=== PATIENT | female | born 1950 | race Caucasian/White ===

== ENCOUNTER 2016-02-26 14:07 | Emergency (ER) | payer MEDICARE ==
[~2016-02-26] VITALS: Ht 165.1 cm; Wt 84.5 kg
[~2016-02-26 14:07] MED LIST: AMIT25TA9 PO; AMOX1TAB12 PO; ASP81CT; ASP81CT PO; BACL20TA PO; BENA5TAB2 PO; CHOL2000 PO; FLC1T PO; FURO20TA4 PO; FURO40TA4 PO; INSU100I14 SQ; INSU100I23 SQ; LANTUS SOL100 UNIT/1 SQ; METO-270 PO; NIAC1000 PO; OMEP40CA3 PO; OXYC-272 PO; WARF10TA PO; warfarin PO
--- OUTSIDE RECORDS SUMMARY | 2016-02-26 14:12 | XMS REPORT | Continuity of Care Document ---
Author Author [facility] Organization [facility] Address Unknown Phone Unavailable Care Team Providers Care Coater Hand Name Role Phone Brenton Santana MD PP [phone] Insurance Providers Payer Name Policy Number Subscriber Name Relationship [facility] [id number] [employer] Advance Directives Directive Response Recorded Date Advanced Directives No 10/08/12 10:10am Problems Medical Problem Onset Date Acute osteomyelitis of the ankle and/or foot 03/15/12 Bleeding 06/06/12 Bleeding from anus 10/08/12 Essential hypertension 06/07/12 Social History History Response Recorded Date/Time Exposure to occupational hazards N 10:10am Allergies, Adverse Reactions, Alerts Allergen Type Severity Reaction Last Updated adhesive tape *RETIRED-03/27/12 Allergy 03/20/12 Medications Medication Dose Units Route Sig Qty Days Omeprazole (Prilosec) 40 Mg PO DAILY [warfarin] 15 Mg PO DAILY Aspirin Insulin Aspart (Novolog) 10 Unit SQ TIDWM Insulin Glargine,Hum.rec.anlog (Lantus Solostar) 38 Unit SQ HS Niacin (Niaspan) 2000 Mg PO HS Amitriptyline Hcl 25 Mg PO HS Baclofen 20 Mg PO HS Benazepril Hcl 2.5 Mg PO DAILY Metoprolol Succinate 12.5 Mg PO BID Folic Acid (Folic Acid Tab) 1 Mg PO DAILY Cholecalciferol (Vitamin D3) (Vitamin D) 2000 Unit PO DAILY Furosemide 40 Mg PO DAILY Amoxicillin/Potassium Clav (Augmentin) 1 Tab PO BID Warfarin Sodium (Coumadin) 11 Mg PO DAILY@1700 Aspirin 81 Mg PO HS Amoxicillin/Potassium Clav (Amox Tr-K Clv 875-125 Mg Tab) 1 Each PO BID 30 Oxycodone Hcl/Acetaminophen (Percocet 10-325 Mg Tablet) 1 Each PO Q4H PRN Insulin Lispro (Humalog) 100 Unit SQ Furosemide 20 Mg PO DAILY Immunizations Name Given Type Date of Pneumonia Vaccine Received if Current 03/10/12 H Date Influenza Vaccine Received if Current 03/21/12 H Response Recorded Date/Time Status not known Unknown Results Test Date Result Interp. Ref. Range Absolute Neutrophil October 08, 2012 7:35am 0.0 # - Activated Partial Thromboplast Time October 09, 2012 5:40am 30.9 SEC N 25.0-39.0 Alanine Aminotransferase (ALT/SGPT) October 08, 2012 7:35am 41 U/L N 30-65 Albumin October 08, 2012 7:35am 3.5 G/DL N 3.4-5.0 Albumin/Globulin Ratio October 08, 2012 7:35am 2.8 H 1.1-1.8 Alkaline Phosphatase October 08, 2012 7:35am 212 U/L H 38-126 Anisocytosis October 08, 2012 7:35am Slight - Aspartate Amino Transf (AST/SGOT) October 08, 2012 7:35am 31 U/L N 15-37 Atypical Lymphocytes June 07, 2012 6:04am 1 % - BUN/Creatinine Ratio October 09, 2012 5:40am 34 H 10-20 Band Neutrophils % October 08, 2012 7:35am 0 % N 0-6 Basophils # (Auto) October 09, 2012 5:40am 0.0 10^3/uL - Basophils % (Manual) October 08, 2012 7:35am 0 % N 0-2 Basophils (%) (Auto) October 09, 2012 5:40am 0 % N 0-2 Blood Morphology Comment October 08, 2012 7:35am See reference - Blood Urea Nitrogen October 09, 2012 5:40am 41 MG/DL H 7-18 Calcium Level October 09, 2012 5:40am 9.5 MG/DL N 8.8-10.8 Calcium/Ionized Calcium Ratio October 08, 2012 7:35am 4.00 mg/dL - Calculated Osmolality October 08, 2012 7:35am 293 MOSM/L N 280-300 Carbon Dioxide Level October 09, 2012 5:40am 24 MMOL/L N 22-29 Chloride Level October 09, 2012 5:40am 113 MMOL/L H 98-108 Creatine Kinase MB October 08, 2012 7:35am 1.6 NG/ML N 0.0-6.0 Creatinine October 09, 2012 5:40am 1.20 mg/dL N 0.6-1.2 Differential Total Cells Counted October 08, 2012 7:35am 100 - Eosinophils # October 08, 2012 7:35am 0.0 # - Eosinophils # (Auto) October 09, 2012 5:40am 0.1 10^3/uL - Eosinophils % (Manual) October 08, 2012 7:35am 0 % N 0-4 Eosinophils (%) (Auto) October 09, 2012 5:40am 1 % N 0-4 Estimat Glomerular Filtration Rate October 09, 2012 5:40am 55.6 - Estimated GFR (Non- October 09, 2012 5:40am 46.0 - Glucose Level October 09, 2012 5:40am 137 MG/DL DH 70-110 Hematocrit October 11, 2012 6:00am 33.30 % L 35.00-45.00 Hemoglobin October 11, 2012 6:00am 11.0 g /dL L 12.0-15.5 Hemoglobin A1c October 09, 2012 5:40am 8.1 % H 4.8-6.0 Hypochromasia October 08, 2012 7:35am Slight - Lymphocytes # October 08, 2012 7:35am 1.2 # - Lymphocytes # (Auto) October 09, 2012 5:40am 1.5 X 10^3 - Lymphocytes % (Manual) October 08, 2012 7:35am 23 % N 20-46 Lymphocytes (%) (Auto) October 09, 2012 5:40am 36 % N 20-46 Mean Corpuscular Hemoglobin October 09, 2012 5:40am 28.5 PG N 26.0-34.0 Mean Corpuscular Hemoglobin Concent October 09, 2012 5:40am 33.8 g/dL N 31.0-37.0 Mean Corpuscular Volume October 09, 2012 5:40am 84 FL N 80-100 Mean Platelet Volume October 09, 2012 5:40am 11.8 FL H 6.0-9.5 Microcytosis June 07, 2012 6:04am 1+ - Monocytes # October 08, 2012 7:35am 0.1 # - Monocytes # (Auto) October 09, 2012 5:40am 0.5 X 10^3 - Monocytes % (Manual) October 08, 2012 7:35am 1 % L 3-11 Monocytes (%) (Auto) October 09, 2012 5:40am 12 % H 3-11 Neutrophils # October 08, 2012 7:35am 3.8 # - Neutrophils # (Auto) October 09, 2012 5:40am 2.1 X 10^3 - Neutrophils (%) (Auto) October 09, 2012 5:40am 51 % N 51-67 Platelet Count October 09, 2012 5:40am 130 10^3/uL L 150-450 Potassium Level October 09, 2012 5:40am 4.1 MMOL/L N 3.5-5.1 Prothromb Time International Ratio October 11, 2012 10:00am 1.0 N 0.8-1.4 Prothrombin Time October 11, 2012 10:00am 13.2 SEC N 12.3-14.4 Red Blood Count October 09, 2012 5:40am 3.47 10^6/uL L 4.00-5.00 Red Cell Distribution Width October 09, 2012 5:40am 14.5 % N 11.8-15.6 Segmented Neutrophils % October 08, 2012 7:35am 76 % H 51-67 Smear Scan June 08, 2012 5:25am - Sodium Level October 09, 2012 5:40am 140 MMOL/L DN 135-150 Stool Occult Blood October 08, 2012 10:00am Positive H - Stool Occult Blood Expiration Date October 08, 2012 10:00am 06/2013 - Stool Occult Blood Lot Number October 08, 2012 10:00am [id number] [id number] - Total Bilirubin October 08, 2012 7:35am 0.5 MG/DL DN 0.1-1.0 Total Creatine Kinase October 08, 2012 7:35am 67 U/L N 30-135 Total Protein October 08, 2012 7:35am 6.3 G/DL L 6.4-8.5 Troponin I October 08, 2012 7:35am 0.012 ng/mL N 0.010-0.080 Uric Acid March 01, 2012 12:25pm 7.0 MG/DL H 2.6-5.6 Urine Bilirubin October 08, 2012 6:30pm Negative - Urine Blood October 08, 2012 6:30pm Negative - Urine Clarity October 08, 2012 6:30pm Clear - Urine Collection Type October 08, 2012 6:30pm Clean catch - Urine Color October 08, 2012 6:30pm Yellow - Urine Glucose (UA) October 08, 2012 6:30pm 3+ H - Urine Ketones October 08, 2012 6:30pm Negative - Urine Leukocyte Esterase October 08, 2012 6:30pm Negative - Urine Nitrite October 08, 2012 6:30pm Negative - Urine Protein October 08, 2012 6:30pm Negative - Urine Specific [place] October 08, 2012 6:30pm 1.010 - Urine Urobilinogen October 08, 2012 6:30pm 0.2 mg/dL - Urine pH October 08, 2012 6:30pm 5.5 - White Blood Count October 09, 2012 5:40am 4.06 10^3/uL N 4.0-11.0 Procedures Procedure Code Date AMPUTATION OF TOE 26180 03/15/12 TOE AMPUTATION 84.11 03/19/12 COMPLETE CBC W/AUTO DIFF WBC 43738 ROUTINE VENIPUNCTURE 80231 05/31/12 BONE IMAGING 3 PHASE 48116 06/03/12 A9503 06/03/12 HEMOGLOBIN 32712 06/05/12 HEMATOCRIT 18981 06/05/12 ROUTINE VENIPUNCTURE 76395 06/05/12 COLONOSCOPY 45.23 06/08/12 ESOPHAGOGASTRODUODENOSCOPY [EGD] W/CLOSED BIOPSY 45.16 06/08/12 COMPLETE CBC W/AUTO DIFF WBC 46474 ROUTINE VENIPUNCTURE 18537 06/10/12 PROTHROMBIN TIME 10748 07/03/12 ROUTINE VENIPUNCTURE 77648 07/03/12 PROTHROMBIN TIME 17078 07/16/12 ROUTINE VENIPUNCTURE 05203 07/16/12 GLYCOSYLATED HEMOGLOBIN TEST 08941 PROTHROMBIN TIME 15984 08/26/12 ROUTINE VENIPUNCTURE 40039 08/26/12 PROTHROMBIN TIME 16024 09/04/12 ROUTINE VENIPUNCTURE 28217 09/04/12 Aerobic Culture 05/09/12 Encounters Encounter Location Date/Time Discharged Inpatient [facility] 06/06/12 3:20pm
--- NOTE | 2016-02-26 15:03 | Diagnostic Imaging Report ---
INDICATION: Pain with concern for osteomyelitis.. TECHNIQUE: 3 views of the of fourth little toe at 2:50 PM. CORRELATION STUDY: None FINDINGS: There is asymmetric soft tissue swelling about the fourth digit. The osseous structures appear to be intact without definitive acute bony abnormality or merary bony destructive type change. IMPRESSION: 1. Bony demineralization. Soft tissue swelling but without evidence for acute bony abnormality or merary bony obstructive change. If continued assessment for osteomyelitis is desired, MRI and/or three-phase bone scan recommended. Dictated by: Dictated on workstation # [id number]
[2016-02-26] MEDS ORDERED: HYDR-3702 PO (15:33)
[2016-02-26 15:37] VITALS: BP 153/73
[2016-04-07] MEDS ORDERED: APIX2.5T2 PO (22:00)
[2016-04-07] MEDS ORDERED: METO2.5T PO (22:00)
[2016-04-07] MEDS ORDERED: SULF-221 PO (22:00)
== END 2016-02-26 15:38 | disposition home or self-care (01) ==
LOC: ED 14:09
DX: M79.675 Pain in left toe(s) (principal); E11.21 Type 2 diabetes mellitus with diabetic nephropathy; Z79.4 Long term (current) use of insulin; I73.9 Peripheral vascular disease, unspecified; Z86.718 Personal history of other venous thrombosis and embolism; Z79.01 Long term (current) use of anticoagulants
CPT/HCPCS: 99282; 99283

== ENCOUNTER → 2016-02-29 | Outpatient (CLI) | payer MEDICARE ==
[~2016-02-29] MED LIST changes: +APIX2.5T2 PO; +HYDR-3702 PO; +METO2.5T PO; +SULF-221 PO
--- NOTE | 2016-02-29 14:29 | Diagnostic Imaging Report ---
PROCEDURE: US Bilateral lower extremity arterial. TECHNIQUE: Multiple real-time grayscale images are obtained through both lower extremity arterial systems with color Doppler imaging and color Doppler spectral analysis. INDICATION: Right leg claudication. COMPARISON: None. DISCUSSION: Scattered atherosclerotic plaque is noted within both lower extremities. Monophasic blood flow is demonstrated throughout, concerning for an inflow stenosis, either within the distal aorta or common iliac arteries. Normal flow velocities are present bilaterally with no sonographic evidence for hemodynamically significant stenosis or arterial occlusion. Soft tissues are unremarkable. Unable to obtain ABIs due to patient unable to tolerate pressure on the ankles. IMPRESSION: 1. Monophasic blood flow within both lower extremities, concerning for an inflow stenosis. This could be further evaluated with CTA or conventional angiography. 2. No hemodynamically significant stenosis or arterial occlusion identified otherwise. Dictated by: Dictated on workstation # [id number]
== END ==
LOC: RAD 12:57
PROVIDERS: ATTEND Nurse Practitioner Family
DX: I73.9 Peripheral vascular disease, unspecified (principal)
CPT/HCPCS: 93925

== ENCOUNTER → 2016-03-29 | Outpatient (REF) | payer MEDICARE ==
[2016-03-29 11:32] LABS: ANION GAP 15.2 MEQ/L (3-15); MAGNESIUM* 2.1 mg/dL (1.6-2.3)
== END ==
LOC: LAB 10:57
PROVIDERS: ATTEND Nurse Practitioner Family
DX: R25.2 Cramp and spasm (principal); E11.9 Type 2 diabetes mellitus without complications
CPT/HCPCS: 80048; 82550; 83036; 83735

== ENCOUNTER → 2016-04-03 | Outpatient (CLI) | payer MEDICARE ==
[2016-04-03 13:09] LABS: ANION GAP 13.9 MEQ/L (3-15)
== END ==
LOC: LAB 10:20
PROVIDERS: ATTEND Nurse Practitioner Family
DX: E11.9 Type 2 diabetes mellitus without complications (principal)
CPT/HCPCS: 36415; 80048

== ENCOUNTER 2016-04-07 21:13 | Emergency (ER) | payer MEDICARE ==
[~2016-04-07] VITALS: Ht 165.1 cm; Wt 86.8 kg
[2016-04-07] MEDS ORDERED: SODIUM CHLORIDE FLUSH 10 ML SYR IV PRN (21:50)
[2016-04-07] MEDS ORDERED: NS IV 500 ML 500 ML IV SCH (21:50)
[2016-04-07] MEDS ORDERED: SODIUM CHLORIDE FLUSH 3 ML SYR IV PRN (21:50)
[2016-04-07] MEDS ORDERED: ONDANSETRON 2 MG/ML (Z0FRAN) 2 ML VIAL IV ONE (21:50)
[2016-04-07 21:58] LABS: BASOPHILS % (AUTO) 0 % (0-2); EOSINOPHILS # (AUTO) 0.1 10^3uL; EOSINOPHILS % (AUTO) 1 % (0-4); LYMPHOCYTES # (AUTO) 1.3 X10^3; MEAN CORPUSCULAR HEMOGLOBIN 29.8 PG (26.0-34.0); MEAN CORPUSCULAR HGB CONC 33.8 g/dL (31.0-37.0); MEAN CORPUSCULAR VOLUME 88 FL (80-100); MEAN PLATELET VOLUME 12.2 FL (6.0-9.5); MONOCYTES # (AUTO) 0.8 X10^3; MONOCYTES % (AUTO) 10 % (3-11); NEUTROPHILS # (AUTO) 5.3 X10^3; NEUTROPHILS % (AUTO) 71 % (51-67); PLATELET COUNT 159 10^3uL (150-450); WHITE BLOOD COUNT 7.53 10^3uL (4.0-11.0)
[2016-04-07 22:04] LABS: ALBUMIN 4.4 g/dL (3.4-5.0); ANION GAP 17.2 MEQ/L (3-15); CALCULATED IONIZED CALCIUM 4.4 mg/dL (3.8-4.6); TOTAL PROTEIN 7.9 g/dL (6.4-8.5)
[2016-04-07] MEDS ORDERED: ED- ONDANSETRON ODT 4 MG (ZOFRAN) 4 TABLETS/BTL PO ONE (22:50)
[2016-04-07 23:14] VITALS: BP 117/56
== END 2016-04-07 23:15 | disposition home or self-care (01) ==
LOC: ED 21:15
DX: R11.2 Nausea with vomiting, unspecified (principal); E11.22 Type 2 diabetes mellitus with diabetic chronic kidney disease; I13.10 Hypertensive heart and chronic kidney disease without heart failure, with stage 1 through stage 4 chronic kidney disease, or unspecified chronic kidney disease; N18.9 Chronic kidney disease, unspecified
CPT/HCPCS: 36415; 80053; 82150; 82550; 83690; 83735; 85025; 96374; 99283; A9270; J2405; J7040

== ENCOUNTER → 2016-04-10 | Outpatient (CLI) | payer MEDICARE | LOC: LAB 13:02 | PROVIDERS: ATTEND Internal Medicine Cardiovascular Disease | DX: R79.89 Other specified abnormal findings of blood chemistry (principal) | CPT/HCPCS: 36415; 80048 ==

== ENCOUNTER → 2016-04-17 | Outpatient (CLI) | payer MEDICARE ==
[2016-04-17 12:13] LABS: MEAN CORPUSCULAR HEMOGLOBIN 29.7 PG (26.0-34.0); MEAN CORPUSCULAR HGB CONC 32.7 g/dL (31.0-37.0); MEAN CORPUSCULAR VOLUME 91 FL (80-100); MEAN PLATELET VOLUME 12.8 FL (6.0-9.5); PLATELET COUNT 140 10^3uL (150-450); WHITE BLOOD COUNT 6.22 10^3uL (4.0-11.0)
[2016-04-17 12:25] LABS: ALBUMIN 3.8 g/dL (3.4-5.0); ANION GAP 14.5 MEQ/L (3-15); CALCULATED IONIZED CALCIUM 4.7 mg/dL (3.8-4.6); TOTAL PROTEIN 6.6 g/dL (6.4-8.5)
[2016-04-17 13:12] LABS: BAND NEUTROPHILS % 0 % (0-6); EOSINOPHILS % 1 % (0-4); LYMPHOCYTES # 1.2 #; MONOCYTES # 0.7 #; MONOCYTES % 12 % (3-11); RBC MORPH NORMAL (NORMAL); SEGMENTED NEUTROPHILS % 67 % (51-67); TOTAL CELLS COUNTED 100
[2016-04-19 20:33] LABS: KAPPA LIGHT CHAINS SERUM 7.32 mg/dL; LAMBDA LIGHT CHAINS SERUM 2.71 mg/dL (())
== END ==
LOC: LAB 11:36
PROVIDERS: ATTEND Family Medicine
DX: D47.2 Monoclonal gammopathy (principal); N18.2 Chronic kidney disease, stage 2 (mild)
CPT/HCPCS: 36415; 80053; 83883; 85007; 85027

== ENCOUNTER → 2016-04-19 | Outpatient (REF) | payer MEDICARE ==
[2016-04-19 19:50] LABS: IRON 63 ug/dL (50-170); UNBOUND IRON CONTENT 209 ug/dl (126-382)
[2016-04-19 20:25] LABS: VITAMIN B 12 1364 pg/mL (213-816)
== END ==
LOC: LAB 12:32
PROVIDERS: ATTEND Nurse Practitioner Family
DX: D64.9 Anemia, unspecified (principal)
CPT/HCPCS: 82607; 82728; 82746; 83540; 83550

== ENCOUNTER → 2016-04-20 | Outpatient (CLI) | payer MEDICARE ==
[2016-04-20 12:52] LABS: BASOPHILS % (AUTO) 0 % (0-2); EOSINOPHILS % (AUTO) 1 % (0-4); LYMPHOCYTES # (AUTO) 1.6 X10^3; MEAN CORPUSCULAR HEMOGLOBIN 30.3 PG (26.0-34.0); MEAN CORPUSCULAR HGB CONC 31.9 g/dL (31.0-37.0); MEAN CORPUSCULAR VOLUME 95 FL (80-100); MEAN PLATELET VOLUME 11.5 FL (6.0-9.5); MONOCYTES # (AUTO) 0.6 X10^3; MONOCYTES % (AUTO) 12 % (3-11); NEUTROPHILS # (AUTO) 2.8 X10^3; NEUTROPHILS % (AUTO) 56 % (51-67); PLATELET COUNT 149 10^3uL (150-450); WHITE BLOOD COUNT 5.07 10^3uL (4.0-11.0)
== END ==
LOC: LAB 12:42
PROVIDERS: ATTEND Family Medicine
DX: D64.9 Anemia, unspecified (principal)
CPT/HCPCS: 36415; 85025

== ENCOUNTER 2016-04-21 09:21 | Day surgery (SDC) | payer MEDICARE ==
[~2016-04-21] VITALS: Ht 162.6 cm; Wt 84.0 kg
[~2016-04-21 09:21] MED LIST changes: +ALFENTANIL 500 MCG/ML (ALFENTA) 5 ML AMP IV ONE; -AMIT25TA9 PO; -AMOX1TAB12 PO; -APIX2.5T2 PO; -ASP81CT; -ASP81CT PO; -BACL20TA PO; -BENA5TAB2 PO; -CHOL2000 PO; -FLC1T PO; -FURO20TA4 PO; -FURO40TA4 PO; -HYDR-3702 PO; -INSU100I14 SQ; -INSU100I23 SQ; +LACTATED RINGERS 1,000 ML IV SCH; -LANTUS SOL100 UNIT/1 SQ; +LIDOCAINE 4% TOPICAL 4.5 ML SYR ONE; -METO-270 PO; -METO2.5T PO; +MIDAZOLAM 2 MG/2 ML (VERSED) VIAL ONE; -NIAC1000 PO; -OMEP40CA3 PO; -OXYC-272 PO; +PROPOFOL 20 ML IV ONE; +SIMETHICONE 40 MG/0.6 ML (MYLICON DROPS) ORAL SYRINGE ONE; +SODIUM CHLORIDE FLUSH 3 ML SYR IV PRN; -SULF-221 PO; -WARF10TA PO; -warfarin PO
[2016-04-21 09:26] VITALS: BP 166/78
[2016-04-21 11:04] VITALS: BP 135/75
[2016-04-21 11:33] VITALS: BP 131/94
== END 2016-04-21 11:40 | disposition home or self-care (01) ==
LOC: ASC 09:21
PROVIDERS: ATTEND Surgery
DX: D64.9 Anemia, unspecified (principal); E11.51 Type 2 diabetes mellitus with diabetic peripheral angiopathy without gangrene; E11.22 Type 2 diabetes mellitus with diabetic chronic kidney disease; N18.9 Chronic kidney disease, unspecified; Z79.02 Long term (current) use of antithrombotics/antiplatelets; Z79.4 Long term (current) use of insulin; Z86.718 Personal history of other venous thrombosis and embolism; Z87.19 Personal history of other diseases of the digestive system
CPT/HCPCS: 43235; 93005; A9270; J2250; J7120

== ENCOUNTER → 2016-04-24 | Outpatient (CLI) | payer MEDICARE ==
[2016-04-24 09:08] LABS: BASOPHILS % (AUTO) 0 % (0-2); EOSINOPHILS # (AUTO) 0.1 10^3uL; EOSINOPHILS % (AUTO) 1 % (0-4); LYMPHOCYTES # (AUTO) 1.3 X10^3; MEAN CORPUSCULAR HEMOGLOBIN 30.4 PG (26.0-34.0); MEAN CORPUSCULAR HGB CONC 32.2 g/dL (31.0-37.0); MEAN CORPUSCULAR VOLUME 95 FL (80-100); MEAN PLATELET VOLUME 11.1 FL (6.0-9.5); MONOCYTES # (AUTO) 0.6 X10^3; MONOCYTES % (AUTO) 12 % (3-11); NEUTROPHILS # (AUTO) 3.1 X10^3; NEUTROPHILS % (AUTO) 61 % (51-67); PLATELET COUNT 134 10^3uL (150-450); WHITE BLOOD COUNT 4.99 10^3uL (4.0-11.0)
== END ==
LOC: LAB 08:51
PROVIDERS: ATTEND Family Medicine
DX: D64.9 Anemia, unspecified (principal)
CPT/HCPCS: 36415; 85025

== ENCOUNTER → 2016-04-28 | Outpatient (CLI) | payer MEDICARE | LOC: RAD 13:22 | PROVIDERS: ATTEND Nurse Practitioner Family | DX: M79.604 Pain in right leg (principal) ==

== ENCOUNTER → 2016-04-28 | Outpatient (REF) | payer MEDICARE ==
[2016-04-28 10:13] LABS: BASOPHILS % (AUTO) 0 % (0-2); EOSINOPHILS # (AUTO) 0.1 10^3uL; EOSINOPHILS % (AUTO) 1 % (0-4); LYMPHOCYTES # (AUTO) 1.2 X10^3; MEAN CORPUSCULAR HEMOGLOBIN 29.4 PG (26.0-34.0); MEAN CORPUSCULAR HGB CONC 31.8 g/dL (31.0-37.0); MEAN CORPUSCULAR VOLUME 92 FL (80-100); MEAN PLATELET VOLUME 12.9 FL (6.0-9.5); MONOCYTES # (AUTO) 0.7 X10^3; MONOCYTES % (AUTO) 12 % (3-11); NEUTROPHILS # (AUTO) 4.1 X10^3; NEUTROPHILS % (AUTO) 67 % (51-67); PLATELET COUNT 140 10^3uL (150-450); WHITE BLOOD COUNT 6.04 10^3uL (4.0-11.0)
[2016-04-28 10:48] LABS: ANION GAP 12.7 MEQ/L (3-15)
== END ==
LOC: LAB 09:31
PROVIDERS: ATTEND Nurse Practitioner Family
DX: D62 Acute posthemorrhagic anemia (principal); N18.2 Chronic kidney disease, stage 2 (mild)
CPT/HCPCS: 80048; 85025

== ENCOUNTER → 2016-05-22 | Outpatient (REF) | payer MEDICARE ==
[~2016-05-22] MED LIST changes: -ALFENTANIL 500 MCG/ML (ALFENTA) 5 ML AMP IV ONE; +AMIT25TA9 PO; +AMOX1TAB12 PO; +APIX2.5T2 PO; +ASP81CT; +ASP81CT PO; +BACL20TA PO; +BENA5TAB2 PO; +CHOL2000 PO; +FLC1T PO; +FURO20TA4 PO; +FURO40TA4 PO; +HYDR-3702 PO; +INSU100I14 SQ; +INSU100I23 SQ; -LACTATED RINGERS 1,000 ML IV SCH; +LANTUS SOL100 UNIT/1 SQ; -LIDOCAINE 4% TOPICAL 4.5 ML SYR ONE; +METO-270 PO; +METO2.5T PO; -MIDAZOLAM 2 MG/2 ML (VERSED) VIAL ONE; +NIAC1000 PO; +OMEP40CA3 PO; +OXYC-272 PO; -PROPOFOL 20 ML IV ONE; -SIMETHICONE 40 MG/0.6 ML (MYLICON DROPS) ORAL SYRINGE ONE; -SODIUM CHLORIDE FLUSH 3 ML SYR IV PRN; +SULF-221 PO; +WARF10TA PO; +warfarin PO
[2016-05-22 12:39] LABS: BASOPHILS % (AUTO) 0 % (0-2); EOSINOPHILS % (AUTO) 1 % (0-4); LYMPHOCYTES # (AUTO) 1.2 X10^3; MEAN CORPUSCULAR HEMOGLOBIN 28.9 PG (26.0-34.0); MEAN CORPUSCULAR HGB CONC 31.9 g/dL (31.0-37.0); MEAN CORPUSCULAR VOLUME 91 FL (80-100); MEAN PLATELET VOLUME 13.3 FL (6.0-9.5); MONOCYTES # (AUTO) 0.9 X10^3; MONOCYTES % (AUTO) 15 % (3-11); NEUTROPHILS # (AUTO) 3.5 X10^3; NEUTROPHILS % (AUTO) 63 % (51-67); PLATELET COUNT 146 10^3uL (150-450); WHITE BLOOD COUNT 5.61 10^3uL (4.0-11.0)
[2016-05-22 12:55] LABS: ALBUMIN 3.6 g/dL (3.4-5.0); ANION GAP 16.3 MEQ/L (3-15); CALCULATED IONIZED CALCIUM 4.8 mg/dL (3.8-4.6); TOTAL PROTEIN 6.4 g/dL (6.4-8.5)
== END ==
LOC: LAB 12:23
PROVIDERS: ATTEND Family Medicine
DX: N18.2 Chronic kidney disease, stage 2 (mild) (principal); I25.10 Atherosclerotic heart disease of native coronary artery without angina pectoris
CPT/HCPCS: 80053; 85025